=== PATIENT | male | born 1950 | race Caucasian/White ===

== ENCOUNTER → 2017-05-10 | Outpatient (CLI) | payer MEDICARE ==
--- NOTE | 2017-05-10 16:26 | 2DMMODE ---
[place] [address] 2 D/M-MODE ECHOCARDIOGRAM Name: TIAN RAMON JR Room: [facility]#: [id number] Admission: 05/10/17 Attend Phys: Hugo Rodriguez, Discharge: Date of : 48 Date of Service: 05/10/17 1626 Report #: [id number] THIS REPORT FOR: //name// APPROVED REPORT Study performed: 05/10/2017 14:59:24 EXAM: Comprehensive 2D, Doppler, and color-flow Echocardiogram Patient Location: Out-Patient Status: routine BSA: 1.97 HR: 72 bpm BP: 116/68 mmHg Other Information Study Quality: Good Indications Atrial Fibrillation 2D Dimensions LVEF(%): 74.80 (>50%) IVSd: 11.63 (7-11mm) LVOT Diam: 19.89 (18-24mm) LVDd: 41.81 mm PWd: 9.19 (7-11mm) Ascending Ao: 26.68 (22-36mm) LVDs: 23.73 (25-40mm) Aortic Root: 29.12 mm Almanza's LVEF: 74.80 % Volumes Left Atrial Volume (Systole) LA ESV Index: 20.20 mL/m2 Aortic Valve AoV Peak Vinnie.: 1.12 m/s AO Peak Gr.: 5.06 mmHg LVOT Max P.38 mmHg AO Mean Gr.: 2.50 mmHg LVOT Mean P.51 mmHg LVOT Max V: 0.92 m/s AO V2 VTI: 20.05 cm LVOT Mean V: 0.56 m/s BOB (VTI): 2.44 cm2 LVOT V1 VTI: 15.74 cm Mitral Valve E/A Ratio: 4.92 MV Decel. Time: 165.76 [place] [address] 2 D/M-MODE ECHOCARDIOGRAM Name: TIAN RAMON JR Room: [facility]#: [id number] Admission: 05/10/17 Attend Phys: Hugo Rodriguez, Discharge: Date of : 48 Date of Service: 05/10/17 1626 Report #: [id number] MV E Max Vinnie.: 0.94 m/s MV PHT: 48.07 ms MVA (PHT): 4.58 cm2 TDI E/Lateral E': 6.71 E/Medial E': 7.83 Medial E' Vinnie.: 0.12 m/s Lateral E' Vinnie.: 0.14 m/s Pulmonary Valve PV Peak Vinnie.: 0.83 m/s PV Peak Gr.: 2.76 mmHg Tricuspid Valve TR Peak Gr.: 14.08 mmHg Left Ventricle The left ventricle is normal size. There is normal LV segmental wall motion. There is normal left ventricular wall thickness. The left ventricular systolic function is normal. The left ventricular ejection fraction is within the normal range. LVEF is 60%. This study is not technically sufficient to allow evaluation of the LV diastolic function due to atrial fibrillation. Right Ventricle The right ventricle is normal size. Atria Left atrium is moderately dilated. Right atrium is moderately dilated. Aortic Valve Aortic valve leaflets are mildly thickened. No aortic regurgitation is present. There is no aortic valvular stenosis. Mitral Valve The mitral valve is normal in structure. Mild mitral regurgitation. Tricuspid Valve The tricuspid valve is normal in structure. Pulmonic Valve Mild pulmonic regurgitation. Pericardium There is no [place] [address] 2 D/M-MODE ECHOCARDIOGRAM Name: TIAN RAMON JR Room: [facility]#: [id number] Admission: 05/10/17 Attend Phys: Hugo Rodriguez, Discharge: Date of : 48 Date of Service: 05/10/17 1626 Report #: [id number] <Conclusion> The left ventricle is normal size. There is normal left ventricular wall thickness. The left ventricular systolic function is normal. The left ventricular ejection fraction is within the normal range. LVEF is 60%. This study is not technically sufficient to allow evaluation of the LV diastolic function due to atrial fibrillation. The right ventricle is normal size. Left atrium is moderately dilated. Right atrium is moderately dilated. Aortic valve leaflets are mildly thickened. The mitral valve is normal in structure. Mild mitral regurgitation. There is no pericardial effusion. There is normal LV segmental wall motion. <ELECTRONICALLY SIGNED> By: Jose Smith MD, FACC 05/10/17 1626 1626 1626 Jose Smith MD, FACC /INF
== END ==
LOC: M.CRD 14:30
DX: I48.91 Unspecified atrial fibrillation (principal); I34.0 Nonrheumatic mitral (valve) insufficiency

== ENCOUNTER 2018-06-22 19:37 | Emergency (ER) | payer MEDICARE ==
[~2018-06-22] VITALS: Ht 180.3 cm; Wt 72.6 kg
[2018-06-22] MEDS ORDERED: NORVASC2.5 MG PO (19:52)
[2018-06-22] MEDS ORDERED: XARELTO15 MG PO (19:52)
[2018-06-22] MEDS ORDERED: ZOCOR20 MG PO (19:52)
[2018-06-22] MEDS ORDERED: TRADJENTA5 MG (19:52)
[2018-06-22] MEDS ORDERED: ASPIR 8181 MG PO (19:53)
[2018-06-22] MEDS ORDERED: UNICOMPLEX M TA1 TA1 PO (19:53)
[2018-06-22] MEDS ORDERED: VITAMIN D1000 UNI1 PO (19:53)
[2018-06-22] MEDS ORDERED: BENAZEPRIL HCL5 MG PO (19:54)
[2018-06-22] MEDS ORDERED: KEFLEX500 M1 PO (21:48)
[2018-06-22 21:56] VITALS: BP 164/87
== END 2018-06-22 21:58 | disposition home or self-care (01) ==
LOC: M.ERS 19:37
DX: S02.2XXA Fracture of nasal bones, initial encounter for closed fracture (principal); S60.222A Contusion of left hand, initial encounter; S09.8XXA Other specified injuries of head, initial encounter; I10 Essential (primary) hypertension; E11.9 Type 2 diabetes mellitus without complications; Z88.0 Allergy status to penicillin; W01.0XXA Fall on same level from slipping, tripping and stumbling without subsequent striking against object, initial encounter; Y93.01 Activity, walking, marching and hiking; Y92.89 Other specified places as the place of occurrence of the external cause; Y99.8 Other external cause status